=== PATIENT | male | born 1965 | race Caucasian/White ===

== ENCOUNTER 2019-10-22 07:14 | Emergency (ER) | payer MEDICAID, SELFPAY ==
[2019-10-22 07:16] VITALS: BP 147/86; PULSE 91; RESP 17; TEMP 36.9; O2SAT 97; BMI 28.1
--- NOTE | 2019-10-22 07:24 | ED.VIS.GEN ---
History of Present Illness Chief Complaint: Eye Problem Detail of Chief Complaint: Possible flash burn Informant: Patient Onset: Today Current Severity: Mild Maximum Severity: Moderate Narrative: Patient presents with concerns for flash burn to both eyes. He states he found an old lamp that he was looking at yesterday. There was warning on the lamp about radiation admission and not to look at the bulb. He was looking at the bulb and then around 130 this morning woke up with sand sensation in each eye consistent with prior flash burn. He does not wear glasses or contacts. Past Medical History - Allergies and Home Meds Allergies/Adverse Reactions: Allergies No Known Allergies Allergy (Verified 10/22/19 07:15) Primary Care Physician: Care Physician,No Primary [Primary Care Provider] - Past Medical History: None Lives: Spouse/ Significant Other Review of Systems General: Denies: Chills, Fever Eyes: Reports: - - Watering, pain bilateral eyes ENT: Denies: Sore throat Cardiovascular: Denies: Chest pain Respiratory: Denies: Dyspnea, Cough Gastrointestinal: Denies: Abdominal pain, Nausea, Vomiting, Diarrhea Musculoskeletal: Denies: Neck pain, Back pain Skin: Denies: Rash Neurological: Denies: Headache Allergy: Denies: Uticaria Physical Exam Vital Signs/Narrative: Vital Signs Temp Pulse Resp BP Pulse Ox 10/22/19 07:16 98.5 F 91 17 147/86 H 97 Inital Vital Signs reviewed: Yes General: Well nourished, Well developed Head: Normocephalic Eyes: Perrl, EOMI, - - Minimal injection ENT: Moist mucous membranes Neck: Supple Cardiovascular: Regular rate, Regular rhythm Respiratory: No distress, CTA bilaterally Abdomen: Soft, Nontender, Normal bowel sounds Skin: Normal color Neurological: Alert, Oriented x3 Psychological: Normal affect Diagnostic/Tx/Re-eval - Medical Decision Making Tetracaine drops were applied to each eye with improvement in his symptoms. Fluorescein dye is applied. He has slight uptake in each eye, left greater than right. No focal ulcerations noted. Patient be treated with gentamicin ophthalmic drops and referred to Dr. Goetz for follow-up if not improving. ED Disposition - Plan for ED Patient: Disposition: Home or Assisted Living Diagnosis: UV keratitis Instructions: FLASH BURN, Eye Referrals: Diego Goetz MD [STAFF PHYSICIAN] - 3-5 Days if not improving Additional Instructions: Gentamicin eye drops - 1 drop to each eye every 6 hours until symptoms resolved for 24 hours
[2019-10-22] MEDS: Fluorescein 1 MG STRIP 1 STRIP EACH EYE (07:47)
[2019-10-22] MEDS: Tetracaine 0.5% Ophthalmic Bottle 1 DRP EACH EYE (07:48)
[2019-10-22] MEDS: Gentamicin Sulfate 1 OPTH.BTL 1 DRP EACH EYE (07:48)
== END 2019-10-22 07:54 | disposition home or self-care (01) ==
LOC: ED 07:45
PROVIDERS: Emergency Provider Emergency Medicine
DX: H16.8 Other keratitis (principal)
CPT/HCPCS: 99282

== ENCOUNTER → 2019-11-30 12:38 | Outpatient (CLI) | payer MEDICAID, SELFPAY ==
--- NOTE | 2019-11-30 09:55 | TISS_PTH ---
PATIENT: ARMEN CHIN LOC: [facility] U#:[id number] AGE/SX: 60/M ROOM: RE11/30/[address]: Dr. Raúl aMsterson MD : 1965 BED: DIS: SPEC #: [id number] RECD: 11/30/19 12:40 STATUS: CONCETTA NEMESIO #: [id number] JOSE ARMANDO: 11/30/19 09:[address]: Raúl Masterson DEPT: SURGICAL PATHOLOGY RECD BY: Jimmy Ovalles ENTERED: 11/30/19 12:45 SP TYPE: Tissue Bx OT DR: [facility] Tissues: Palate, NOS Procedures: Surgery Specimen Level IV HEADER OPERATION: Biopsy PRE-OP DIAGNOSIS: Papilloma soft palate TISSUE SUBMITTED: Right palate MICROSCOPIC DIAGNOSIS Right soft palate, biopsy: Squamous papilloma. AM:gladis 12/01/19 MICROSCOPIC DESCRIPTION Slides are reviewed. GROSS DESCRIPTION Received in fixative is one container labeled with the patient's name and designated papilloma right palate. The specimen consists of a piece of saba-white soft tissue measuring 0.5 x 0.5 x 0.3 cm and 0.2 x 0.2 x 0.1 cm. The entire specimen is submitted in one cassette. / SJ:rg 11/30/19 TC:1 CPT: 98957
== END ==
PROVIDERS: Referring Provider Otolaryngology; Visit Provider Otolaryngology
DX: D10.39 Benign neoplasm of other parts of mouth (principal)
CPT/HCPCS: 88305

== ENCOUNTER → 2020-01-10 07:07 | Outpatient (CLI) | payer MEDICAID, SELFPAY ==
--- NOTE | 2020-01-10 09:06 | NEURO ---
NCS and/or EMG Patient Report Ordering Doctor: Maria L Briones DATE OF SERVICE: 01/10/20 Jermaine Baker is a 54-year-old male presents for electrodiagnostic testing of the upper limbs. He reports numbness and tingling in the hands, worse on the right side. Electrodiagnostic findings: Right median motor nerve demonstrates prolonged distal latency with normal amplitude and conduction velocity. The left median motor nerve demonstrates prolonged distal latency with normal amplitude and reduced conduction velocity. The right ulnar motor latency and amplitude are within normal limits. There is decrease in ulnar motor conduction across the right elbow. Left ulnar motor responses within normal limits. Sensory responses are prolonged in both the right and left median nerve at the wrist. On needle EMG, all muscles tested in the upper limb showed no evidence of denervation with normal motor unit action potentials. Electrodiagnostic impression: This is an abnormal study in the upper limbs 1. Electrodiagnostic findings demonstrate bilateral median mononeuropathy. This is consistent with a mild left carpal tunnel syndrome and a moderate right carpal tunnel syndrome. 2. Electrodiagnostic findings consistent with right-sided cubital tunnel syndrome, mild to moderate in nature. 3. No electrodiagnostic evidence is noted for cervical radiculopathy. If there are any further questions, please do not hesitate to contact me.
== END ==
DX: G56.03 Carpal tunnel syndrome, bilateral upper limbs (principal)
CPT/HCPCS: 95886; 95912

== ENCOUNTER 2020-03-22 11:31 | Emergency (ER) | payer MEDICAID, SELFPAY ==
[2020-03-22 11:32] VITALS: BP 134/76; PULSE 77; RESP 17; TEMP 36.8; O2SAT 98; BMI 28.0
--- NOTE | 2020-03-22 11:44 | CT_ITS ---
STUDY: CTA HEAD AND NECK WITH CONTRAST REASON FOR EXAM: Male, 54 years old. ROSE X 10 DAYS RT SIDE OF HEAD. NKI RADIATION DOSAGE (If Supplied By Facility): CTDIvol = ( 29.63 ) mGy, DLP = ( 1520.67 ) mGycm TECHNIQUE: CT angiography was performed with a multi-detector CT scanner. Data acquisition was obtained from the skull base through the vertex following intravenous administration of Isovue 370 100ml. MIP images were reconstructed from the axial data set. Post-processing of the angiographic images was performed, with multiplanar reformation and 3D reconstruction. Individualized dose optimization techniques were used for this CT. COMPARISON: No relevant priors. FINDINGS: Normal bilateral petrous carotid arteries. Normal right cavernous carotid artery with a normal supraclinoid bifurcation. Normal left cavernous carotid artery with a normal supraclinoid bifurcation. Normal right A1 segments of the anterior cerebral artery. Normal left A1 segments of the anterior cerebral artery. Normal intact anterior communicating artery (ACOM). Normal bilateral A2 segments of the anterior cerebral arteries. Normal right M1 and M2 segments of the middle cerebral arteries, with a normal M1 bifurcation. Normal left M1 and M2 segments of the middle cerebral arteries, with a normal M1 bifurcation. Normal right posterior communicating artery (PCOM). Normal left posterior communicating artery (PCOM). Normal bilateral vertebral arteries. Normal basilar artery with a normal basilar bifurcation. The visualized bilateral superior cerebellar (SCA) arteries are normal. Normal bilateral P1, P2 and visualized P3 segments of the posterior cerebral arteries. There is no demonstrated aneurysm of the [place]. There is no demonstrated abnormality of the visualized brain. AORTIC ARCH: Normal visualized aortic arch. Normal origins of the brachiocephalic, left common carotid, and left subclavian arteries. RIGHT CAROTID ARTERIES: Normal right common carotid artery (CCA). Minimal calcifications at the right common carotid bulb. Normal origin of the right internal carotid (ICA) artery without a hemodynamically significant stenosis. Normal visualized cervical portion of the right internal carotid artery. Normal origin of the right external carotid artery (ECA). LEFT CAROTID ARTERIES: Normal left common carotid artery (CCA). Normal left common carotid bulb. Normal origin of the left internal carotid (ICA) artery without a hemodynamically significant stenosis. Normal visualized cervical portion of the left internal carotid artery. Normal origin of the left external carotid artery (ECA). VERTEBRAL ARTERIES: Normal bilateral vertebral arteries. Left paranasal sinus mucosal thickening. There is a prominent right frontal extra-axial drain in the vein noted likely a normal variant. CT/CTA Head AND Neck W/ Contrast IMPRESSION: Normal CTA Head and neck with contrast. There is a prominent right frontal extra-axial drain in the vein noted likely a normal variant. Paranasal sinuse mucosal thickening. Electronically Signed: Wally Cuevas DO at 13:13 EDT Tel [phone], Service support ,
--- NOTE | 2020-03-22 11:45 | ED.DCSUM_ITS ---
History of Present Illness Chief Complaint: Headache Informant: Patient Onset: Days - 10 days Context: Gradual Onset Timing: Waxes and wanes Current Severity: Mild Maximum Severity: Moderate Narrative: Patient presents with 10-day history of right-sided headache. He does point to the occiput area states it seems to radiate up across his scalp. He denies light sensitivity, nausea, or vomiting. Has been taking ibuprofen for pain and in fact states he took 1600 mg this morning before coming in. He denies recent head injury but does have history of prior head injuries. He is not a person who typically gets headaches. He is concerned for tumor or blood clots causing his symptoms. Past Medical History - Allergies and Home Meds Allergies/Adverse Reactions: Allergies No Known Allergies Allergy (Verified 03/22/20 11:32) Primary Care Physician: Gertrudis Morales [Primary Care Provider] - Past Medical History: None Lives: Spouse/ Significant Other Smoking Status: Current every day smoker Review of Systems General: Denies: Chills, Fever Eyes: Denies: Visual changes - bilaterally ENT: Denies: Bilateral ear pain Cardiovascular: Denies: Chest pain Respiratory: Denies: Dyspnea, Cough Gastrointestinal: Denies: Abdominal pain, Nausea, Vomiting Musculoskeletal: Denies: Extremity Pain Neurological: Reports: Headache. Denies: Weakness, Parasthesia Hematologic: Denies: Easy bruising, Easy bleeding Allergy: Denies: Uticaria Physical Exam Vital Signs/Narrative: Vital Signs Temp Pulse Resp BP Pulse Ox 03/22/20 11:32 98.2 F 77 17 134/76 H 98 Inital Vital Signs reviewed: Yes General: Well nourished, Well developed Head: Normocephalic Eyes: Perrl, EOMI ENT: Moist mucous membranes, - - No C-spine tenderness. Neck: Supple Cardiovascular: Regular rate, Regular rhythm Respiratory: No distress, CTA bilaterally Abdomen: Soft, Nontender Back: Nontender Extremities: Nontender Skin: Normal color, No rash Neurological: Alert, Oriented x3, Normal Strength, Normal Sensation Psychological: Normal affect Diagnostic/Tx/Re-eval Impressions Head/Neck CTA 03/22/20 11:44 IMPRESSION: Normal CTA Head and neck with contrast. There is a prominent right frontal extra-axial drain in the vein noted likely a normal variant. Paranasal sinuse mucosal thickening. Electronically Signed: Wally Cuevas DO at 13:13 EDT Tel [phone], Service support , 03/22/20 11:44 CTA Head AND Neck W/ Contrast [CT] Stat Laboratory Results 03/22/20 03/22/20 11:50 11:50 WBC 10.1 RBC 4.64 Hgb 14.7 Hct 42.2 MCV 90.9 MCH 31.7 MCHC 34.8 RDW Std Deviation 40.7 RDW Coeff of Vicky 12.3 Plt Count 279 MPV 8.9 Immature Gran % (Auto) 0.700 Neut % (Auto) 62.8 Lymph % (Auto) 23.4 [place] % (Auto) 7.2 Eos % (Auto) 5.4 H Baso % (Auto) 0.5 Absolute Neuts (auto) 6.3 Absolute Lymphs (auto) 2.36 Nucleated RBC % 0 Sodium 139 Potassium 3.9 Chloride 109 H Carbon Dioxide 26.0 Anion Gap 4 L BUN 23 H Creatinine 0.71 Estim Creat Clear Calc 107.33 Est GFR (MDRD) Af Amer 149 Est GFR (MDRD) Non-Af 123 BUN/Creatinine Ratio 32.5 H Glucose 118 H Calcium 8.3 L - Medical Decision Making Patient did not want anything for headache here. He is reassured with our CT findings. As previously stated he does point to the base of the occiput describing source of pain and it seems to be worse with turning his head. My suspicion is he may have nerve irritation there. He will be given a short course of steroids to help with nerve irritation. ED Disposition - Plan for ED Patient: Disposition: Home or Assisted Living Diagnosis: Cephalgia Instructions: ED Headache Unspecified Prescriptions: Prednisone [Deltasone] 40 mg PO DAILY #10 tab Transmission Status: Pending to [facility] Referrals: Андрей Dunham,Gertrudis Mitchell [Primary Care Provider] - 1 Week
[2020-03-22 12:01] LABS: Absolute Lymphocyte Count 2.36 X10^3/uL (0.83-4.51); Absolute Neutrophil Count 6.3 X10^3/uL (2.0-7.7); Basophil# 0.05 X10^3/uL; Basophil% 0.5 % (0-1); Eosinophil# 0.54 X10^3/uL; Eosinophils% 5.4 % (0-5); Hematocrit 42.2 % (40-54); Hemoglobin 14.7 g/dL (13.0-16.5); Lymphocyte # 2.36 X10^3/ul (4.0); Lymphocyte % 23.4 % (19-41); Mean Corp Hgb Conc 34.8 g/dL (32-36); Mean Corpuscular Hgb 31.7 pg (27.0-32.0); Mean Corpuscular Volume 90.9 fL (80-94); Mean Platelet Vol. 8.9 fl (6.2-12.0); Monocyte# 0.73 X10^3/uL; Monocyte% 7.2 % (0-10); NRBC Flagged by Analyzer 0 % (0-5); Neutrophil # 6.32 X10^3/uL (2.7-7.7); Neutrophil % 62.8 % (47-70); Platelet Count 279 K/mm3 (150-450); RBC Distribution Width CV 12.3 % (11.6-14.6); RBC Distribution Width SD 40.7 fl (35.1-43.9); Red Blood Count 4.64 M/mm3 (4.6-6.2); White Blood Count 10.1 K/mm3 (4.4-11.0)
[2020-03-22 12:10] LABS: Anion Gap 4 (5-15); BUN 23 mg/dL (7-18); BUN/Creat Ratio 32.5 RATIO (10-20); Calcium,Total 8.3 mg/dL (8.5-10.1); Chloride 109 mmol/L (98-107); Creatinine, Serum 0.71 mg/dL (0.70-1.30); EST Glomerular Filtration Rate 123 mL/min (>60); Est Glom Filt Rate - Afr Amer 149 mL/min (>60); Estimated Creatinine Clearance 107.33 ml/min; Glucose 118 mg/dL (74-106); Potassium 3.9 mmol/L (3.5-5.1); Sodium Level 139 mmol/L (136-145)
[2020-03-22] MEDS: predniSONE 20 MG Tablet 60 MG PO (13:53)
[2020-03-22] MEDS: Contrast Allergy Safety Check IV (13:54)
[2020-03-22 13:55] VITALS: RESP 18
== END 2020-03-22 13:56 | disposition home or self-care (01) ==
PROVIDERS: Emergency Provider Emergency Medicine
DX: R51 Headache (principal); F17.200 Nicotine dependence, unspecified, uncomplicated
CPT/HCPCS: 70496; 70498; 80048; 85025; 99284; Q9967; A4216

== ENCOUNTER 2020-05-21 11:06 | Emergency (ER) | payer MEDICAID, SELFPAY ==
[2020-05-21 11:07] VITALS: BP 144/89; PULSE 86; RESP 18; TEMP 36.9; O2SAT 99; BMI 29.5
--- NOTE | 2020-05-21 11:31 | VDLE_ITS ---
Reason For Study: Swelling Procedure LEFT Exam performed portable in ED. GSV is normal. A preliminary report was called and/or faxed CFV is compressible, spontaneous, phasic, to Suzy. competent, and demonstrates normal augmentation. FV is compressible, spontaneous, phasic, competent and demonstrates normal augmentation. POP V is compressible, spontaneous, phasic, competent and demonstrates normal augmentation. T/P Trunk is compressible. PTV is compressible. LT PerV is compressible. Interpretation Summary There is no evidence of left lower extremity deep vein thrombosis. Left great saphenous vein appears patent and compressible segmentally. Ordering Physician: Shailesh Almonte Performed By: Keke Brar RVT
--- NOTE | 2020-05-21 11:51 | ED.DCSUM_ITS ---
History of Present Illness Chief Complaint: Edema Informant: Patient Narrative: Patient is a 54-year-old male who presents to the ED for left leg pain, swelling erythema. This started approximately 4 days ago. 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 Since that has been having swelling around the knee. This has progressed down the leg. He has been able to ambulate without difficulty. His knee feels stiff to him but no pain when moving his knee. He has never had this swelling before in the past. No history of DVT/PE. Denies any chest pain or shortness of breath. No family history of VTE. He denies any systemic symptoms including any fever/chills or nausea/vomiting. No abdominal pain. Past Medical History - Allergies and Home Meds Allergies/Adverse Reactions: Allergies No Known Allergies Allergy (Verified 03/22/20 11:32) Primary Care Physician: Marcel Gerber MD [STAFF PHYSICIAN] - [facility],Gertrudis Mitchell [Primary Care Provider] - Smoking Status: Current every day smoker Review of Systems General: Denies: Chills, Fever, Sweats Eyes: Denies: Visual changes - bilaterally, Diplopia ENT: Denies: Rhinorrhea, Sore throat Cardiovascular: Denies: Chest pain, Palpitations Respiratory: Denies: Dyspnea, Cough, Dyspnea on exertion Gastrointestinal: Denies: Abdominal pain, Nausea, Vomiting, Diarrhea Musculoskeletal: Reports: Swelling, Extremity Pain. Denies: Back pain Skin: Reports: Rash. Denies: Wounds Neurological: Denies: Headache, Weakness, Numbness Physical Exam Vital Signs/Narrative: Vital Signs Temp Pulse Resp BP Pulse Ox 05/21/20 11:07 98.5 F 86 18 144/89 H 99 Inital Vital Signs reviewed: Yes General: Well nourished, Well developed, No Acute Distress Head: Normocephalic, Atraumatic Eyes: Perrl, EOMI ENT: Moist mucous membranes, No rhinorrhea Neck: Supple, Nontender Cardiovascular: Regular rate, Regular rhythm, No murmurs Respiratory: No distress, CTA bilaterally, Chest nontender Abdomen: Soft, Nontender, Nondistended, Normal bowel sounds Back: Nontender, Normal Inspection Extremities: - - Patient has swelling over the patella. He has full range of motion without significant pain. There is erythema surrounding the knee. The prepatellar area is tender to palpation. There is peripheral edema going down with 1+ pitting edema. Otherwise neurovascularly intact. Skin: Normal color, No rash Neurological: Alert, Oriented x3, Cranial nerves II-XII grossly intact, Normal Strength, Normal Sensation Psychological: Normal affect, Normal Mood Diagnostic/Tx/Re-eval - Medical Decision Making Patient presents to the ED for leg pain as well as swelling, warmth. I do have concern for septic bursitis. Joint is not affected at this time as he is free range of motion without any pain. Ultrasound not show any evidence of DVT. X- ray not show any evidence of foreign body. Will treat with antibiotics. Given first dose of antibiotics here in the emergency department. I did make a referral for orthopedic surgery for potential drainage. Warning signs and sympt oms for which to return to the ED are reviewed with him including developing systemic symptoms, painful joint movements are reviewed. He understands and is agreeable this plan. Patient discharged home in stable condition. ED Disposition - Plan for ED Patient: Disposition: Home or Assisted Living Diagnosis: Lower extremity cellulitis Instructions: ED Bursitis, ED Cellulitis Prescriptions: Smz/Tmp Ds [Bactrim Ds] 2 tab PO BID 7 Days #28 tab Transmission Status: Received by [id number] Cephalexin [Keflex] 500 mg PO 4X/DAY 7 Days #28 cap Transmission Status: Received by [id number] Referrals: [facility] Gertrudis Dunham [Primary Care Provider] - Marcel Gerber MD [STAFF PHYSICIAN] - 2 Days
[2020-05-21 13:11] VITALS: RESP 18
--- NOTE | 2020-05-21 13:50 | RAD_ITS ---
STUDY: X-RAY - LEFT KNEE REASON FOR EXAM: Male, 54 years old. LEFT LOWER LEG SWELLING AND REDNESS. UNKNOWN INJURY TECHNIQUE: 3 view(s) of the knee. COMPARISON: None. FINDINGS: Normal visualized distal femur. Healed fracture of the proximal fibular shaft. Prior ORIF of the mid tibial shaft. Normal proximal tibiofibular articulation. Normal medial femorotibial compartment. Normal lateral femorotibial compartment. Normal patellofemoral articulation. Pretibial soft tissue swelling. RAD/Knee 3 Views IMPRESSION: Pretibial soft tissue swelling. Electronically Signed: Biju Castorena, at 14:20 EDT , Service support ,
[2020-05-21] MEDS: Smz/Tmp Ds Tablet 2 TABLET PO (14:40)
[2020-05-21] MEDS: Cephalexin 250 MG Capsule 500 MG PO (14:40)
== END 2020-05-21 14:46 | disposition home or self-care (01) ==
PROVIDERS: Emergency Provider Emergency Medicine
DX: L03.116 Cellulitis of left lower limb (principal); F17.200 Nicotine dependence, unspecified, uncomplicated
CPT/HCPCS: 73562; 93971; 99283; A4216

== ENCOUNTER → 2020-07-12 07:26 | Outpatient (CLI) | payer MEDICAID, SELFPAY ==
[2020-07-12 08:47] LABS: Cholesterol 195 mg/dL (200); High Density Lipoprotein 55 mg/dL; Triglycerides 92 mg/dL; Very Low Density Lipoprotein 18 mg/dL (5-40)
== END ==
PROVIDERS: Nurse Practitioner Family
DX: E78.5 Hyperlipidemia, unspecified (principal)
CPT/HCPCS: 36415; 80061

== ENCOUNTER → 2020-12-31 14:12 | Outpatient (CLI) | payer MEDICAID, SELFPAY ==
[2020-12-31 14:45] LABS: Hematocrit 42.6 % (40-54); Hemoglobin 14.8 g/dL (13.0-16.5); Mean Corp Hgb Conc 34.7 g/dL (32-36); Mean Corpuscular Hgb 31.4 pg (27.0-32.0); Mean Corpuscular Volume 90.3 fL (80-94); Mean Platelet Vol. 9.2 fl (6.2-12.0); Platelet Count 249 K/mm3 (150-450); RBC Distribution Width CV 12.5 % (11.6-14.6); RBC Distribution Width SD 41.1 fl (35.1-43.9); Red Blood Count 4.72 M/mm3 (4.6-6.2); White Blood Count 11.6 K/mm3 (4.4-11.0)
[2020-12-31 15:21] LABS: ALB/GLOB Ratio 1.3 RATIO (0.9-2.4); AST(SGOT) 37 U/L (15-37); Alanine Aminotransfer ALT/SGPT 29 U/L (16-61); Albumin, Serum 3.9 g/dL (3.2-5.0); Alkaline Phosphatase 80 U/L (45-117); Anion Gap 7 (5-15); BUN 19 mg/dL (7-18); BUN/Creat Ratio 20.3 RATIO (10-20); Calcium,Total 8.4 mg/dL (8.5-10.1); Chloride 102 mmol/L (98-107); Creatinine, Serum 0.94 mg/dL (0.70-1.30); EST Glomerular Filtration Rate 89 mL/min (>60); Est Glom Filt Rate - Afr Amer 107 mL/min (>60); Glucose 119 mg/dL (74-106); PSA,Total - Annual Screen 0.39 ng/mL (0.00-4.00); Potassium 3.5 mmol/L (3.5-5.1); Protein, Total 6.9 g/dL (6.4-8.2); Sodium Level 135 mmol/L (136-145)
[2021-01-05 20:07] LABS: Testosterone, Free 6.59 ng/dL (5.00-21.00)
[2021-01-05 20:18] LABS: Testosterone, % Free 1.28 % (1.50-4.20); Testosterone, Total 515 ng/dL (264-916)
== END ==
DX: G89.4 Chronic pain syndrome (principal); Z12.5 Encounter for screening for malignant neoplasm of prostate
CPT/HCPCS: 36415; 80053; 82652; 84153; 84402; 84403; 85027; G0103

== ENCOUNTER → 2021-03-14 11:07 | Outpatient (CLI) | payer MEDICAID, SELFPAY ==
--- NOTE | 2021-03-14 11:39 | RAD_ITS ---
STUDY: X-RAY - LUMBAR SPINE REASON FOR EXAM: Male, 55 years old. LOW BACK PAIN TECHNIQUE: view(s) of the lumbar spine were obtained. COMPARISON: None FINDINGS: There is slight loss of volume of the body of T12 with some anterior osteophyte formation noted. Minimal narrowing cough T12-L1 seen. There rest of the intervertebral disks between L1-2 ,L2-3 and L3-4 are maintained. There is minimal narrowing at the level of L4-5. There is marked narrowing of L5-S1 level with vacuum phenomenon. No evidence of spondylolysis or spondylolisthesis. The spinous and transverse processes as well as the pedicles are intact. The soft tissue structures are unremarkable. RAD/Lumbar Spine 2 or 3 Views IMPRESSION: Degenerative disc disease particularly at L5-S1 with vacuum phenomenon. Moderate hypertrophic osteophyte formation particularly seen at the level of T12 and L5-S1 Electronically Signed: Waldemar Garner, at 12:03 EDT Tel , Service support ,
[2021-03-14 13:49] LABS: Vitamin B12 438 pg/mL (211-911)
[2021-03-14 13:54] LABS: Iron 204 ug/dL (65-175); Iron Binding Capacity,Total 257 ug/dL (250-450); PERCENT IRON SATURATION 79.4 % (15.0-55.0); T4 Free Direct 0.78 ng/dL (0.76-1.46)
== END ==
PROVIDERS: Referring Provider Nurse Practitioner Adult Health; Visit Provider Nurse Practitioner Adult Health
DX: R53.83 Other fatigue (principal); M54.5 Low back pain
CPT/HCPCS: 36415; 72100; 82607; 83540; 83550; 84439

== ENCOUNTER 2021-03-22 10:38 | Emergency (ER) | payer MEDICAID, SELFPAY ==
[2021-03-22 10:39] VITALS: BP 149/95; PULSE 80; RESP 16; TEMP 36.2; O2SAT 99; BMI 29.5
--- NOTE | 2021-03-22 10:51 | EX.ED.VIS.EY ---
HPI History of Present Illness Chief Complaint: Eye Problem Informant: patient Onset/Context/Timing Location: Right Eye Onset: Yesterday Current Severity: Mild Maximum Severity: Mild Associated Symptoms Associated Symptoms - Eyes: Foreign body sensation History of injury: Uncertain Visual correction: None Narrative Narrative: 55-year-old male was working on a car at his home and stated he had safety glasses on but thinks he might of got a piece of rust or metal in his right eye. His father since yesterday. He does not wear glasses or contacts. He has never had eye surgery. He denies any significant visual change. There is been no discharge. No trauma otherwise. Prior similar symptoms: Yes Recent Illness/Hospitalization: No PFSH PFSH Medical History Smoker Home Medications cholecalciferol (vitamin D3) 1,000 unit PO DAILY 03/22/20 [History Last Taken Unknown] gabapentin 300 mg PO TIDCM 03/22/20 [History Last Taken Unknown] prednisone 40 mg PO DAILY #10 tab 03/22/20 [Rx Last Taken Unknown] Allergy/AdvReac Type Severity Reaction Status Date / Time No Known Allergies Allergy Verified 03/22/21 10:40 Social History Smoking Status: Current every day smoker tobacco type: cigarettes ROS ROS ED ROS Narrative Denies any recent illness. Review of Systems ROS Unobtainable: Denies due to encephalopathy Constitutional Constitutional ED: Denies fever(s) Eyes Eyes: Denies change in vision ENT ENT ED: Denies ear pain or sore throat Cardiovascular Cardiovascular: Denies chest pain Respiratory/Chest Respiratory/Chest: Denies dyspnea Gastrointestinal Gastrointestinal: Denies abdominal pain, diarrhea, nausea or vomiting Genitourinary Genitourinary ED: Denies dysuria Musculoskeletal Musculoskeletal: Denies myalgias Integumentary Denies rash Neurologic Neurologic: Denies headache(s) Psychiatric Psychiatric: Denies depression Endocrine Endocrinology: Denies polyuria Hematologic/Lymphatic Hematologic/Lymphatic: Denies easy bruising Allergic/Immunologic Allergic/Immunologic ED: Denies urticaria EXAM Physical Exam Narrative Exam Narrative: Middle-age male no acute distress vital signs stable afebrile. H EENT exam unremarkable except possible foreign body right eye will need further evaluation with slit lamp and fluorescein. Pupils round reactive light motions are intact. No signs of infection or trauma. Lungs are clear. Heart regular rate and rhythm abdomen soft. Moving all 4 extremities. Neurologic exam unremarkable. Const Vital Signs: 03/22/21 10:39 Temperature 97.1 F L Temperature Source Temporal Pulse Rate 80 Respiratory Rate 16 Blood Pressure 149/95 H Blood Pressure Mean 113 Pulse Ox 99 Oxygen Delivery Method Room Air Positive well nourished and well developed General Appearance ED: well developed HEENT atraumatic; Negative for trauma or tenderness Eyes General Eye ED: Yes normal appearance of both eyes and normal light reflex Neck no lymphadenopathy, supple and no JVD Resp normal respiratory effort, no retractions, no use of accessory muscles and clear to auscultation bilaterally Cardio regular rate and no murmurs GI non-tender and non-distended Auscultation: normoactive bowel sounds Palpation: soft Extremity normal to inspection General Extremety ED: Negative for edema General Extremity: Negative for edema Neuro oriented x3, CN's II-XII intact bilaterally and moves all extremities Sensorium / Orientation: alert, oriented to person, oriented to place and oriented to time Psych Psych Narrative: Normal. Skin Lesions: no lesions Rashes: no rashes MDM MDM MDM Narrative Medical decision making narrative: Patient concern with either right eye foreign body or corneal abrasion. Tetracaine will be applied to the eye and fluorescein and slit-lamp exam will be performed. Along with visual acuity. Tetracaine was right eye improve the discomfort greatly. Fluorescein stain. There did appear to be some type of foreign body in the right in the middle of his pupil. I used a Q-tip and removed some of it there appears to be some remnant of the foreign body. I discussed that with the patient he will follow-up with [facility] on Wednesday for further evaluation and possible burring if at some foreign body. Discharge Plan Triage Chief Complaint: Eye Problem ED Provider: Piyush Mclean Dx/Rx/DC Orders Clinical Impression: Acute foreign body of right eye, Abrasion, corneal Instructions: ED Corneal Abrasion, ED Corneal Foreign Body, Removed Prescriptions: No Action gabapentin 300 MG capsule 300 mg PO TIDCM RF: 0 cholecalciferol (vitamin D3) 1,000 UNIT tablet 1,000 unit PO DAILY RF: 0 prednisone 20 MG tablet 40 mg PO DAILY Qty: 10 RF: 0 Primary Care Provider: [facility] Gertrudis Carrera Referrals: Mario Jaime MD [STAFF PHYSICIAN[facility] - Activity Restrictions/Additional Instructions: May use tetracaine for the next 2 days to help with any pain in the right eye. Stop using it after Wednesday evening. Long-term returns healing. Based duration eye ointment 2-3 times a day in the right eye till gone. Call and follow-up with [facility] on Wednesday need to be seen had them reevaluate to see if there is any remnant of the foreign body right in your eye and if so they need to bur drill it out. Tylenol and Motrin for pain. Disposition Disposition: Home, Self Care
[2021-03-22] MEDS: Tetracaine 0.5% Ophthalmic Bottle 1 DRP RIGHT EYE (10:54)
[2021-03-22] MEDS: Fluorescein 1 MG STRIP 1 STRIP RIGHT EYE (10:55)
== END 2021-03-22 12:18 | disposition home or self-care (01) ==
LOC: ED 11:26
PROVIDERS: Emergency Provider Emergency Medicine
DX: T15.01XA Foreign body in cornea, right eye, initial encounter (principal); F17.210 Nicotine dependence, cigarettes, uncomplicated; Z79.52 Long term (current) use of systemic steroids; W45.8XXA Other foreign body or object entering through skin, initial encounter
CPT/HCPCS: 99283

== ENCOUNTER 2021-05-29 08:05 | Emergency (ER) | payer MEDICAID, SELFPAY ==
[2021-05-29 08:06] VITALS: BP 176/86; PULSE 79; RESP 18; TEMP 36.4; O2SAT 100; BMI 28.2
--- NOTE | 2021-05-29 09:11 | EX.ED.DYSGE1 ---
HPI History of Present Illness Chief Complaint: Edema Narrative Narrative: Patient states he was at home this morning eating his breakfast when all of a sudden he felt a pop and then noticed some swelling to the right side of his face. He denies any recent trauma any trouble breathing or swallowing any fevers or chills. He states that since the initial swelling symptoms are spontaneously improving but have not resolved and therefore he presents for evaluation [facility] Medical History Smoker Home Medications cholecalciferol (vitamin D3) 1,000 unit PO DAILY 03/22/20 [History Last Taken Unknown] gabapentin 300 mg PO TIDCM 03/22/20 [History Last Taken Unknown] prednisone 40 mg PO DAILY #10 tab 03/22/20 [Rx Last Taken Unknown] amoxicillin-pot clavulanate [Augmentin] 1 tab PO BID #20 tab 05/29/21 [Rx Last Taken Unknown] prednisone 40 mg PO DAILY 7 Days #14 tab 05/29/21 [Rx Last Taken Unknown] Allergy/AdvReac Type Severity Reaction Status Date / Time No Known Allergies Allergy Verified 05/29/21 08:07 Social History Smoking Status: Current every day smoker tobacco type: cigarettes ROS ROS ED Constitutional Constitutional ED: Denies chills or fever(s) ENT ENT ED: Denies sore throat Cardiovascular Cardiovascular: Denies chest pain Respiratory/Chest Respiratory/Chest: Denies cough or dyspnea Gastrointestinal Gastrointestinal: Denies abdominal pain, diarrhea, nausea or vomiting Genitourinary Genitourinary ED: Denies dysuria Musculoskeletal Musculoskeletal: Denies myalgias Integumentary Denies rash Neurologic Neurologic: Denies headache(s) Hematologic/Lymphatic Hematologic/Lymphatic: Denies easy bleeding or easy bruising EXAM Physical Exam Const Vital Signs: 05/29/21 08:06 Temperature 97.6 F L Temperature Source Temporal Pulse Rate 79 Respiratory Rate 18 Blood Pressure 176/86 H Blood Pressure Mean 116 Pulse Ox 100 Oxygen Delivery Method Room Air Positive well nourished and well developed General Appearance ED: well developed HEENT Reports moist mucous membranes HEENT Narrative: There is soft tissue swelling along the right parotid gland region without overlying erythema warmth or tenderness to palpation. There is no obvious stone palpated within Stensen's duct. No tongue or lip swelling no oral lesions no airway edema or compromise. Eyes PERRL and EOMs intact bilaterally Neck supple Resp normal respiratory effort and clear to auscultation bilaterally Cardio regular rate and regular rhythm GI non-tender and non-distended Auscultation: normoactive bowel sounds Palpation: soft Extremity normal to inspection Neuro oriented x3 and CN's II-XII intact bilaterally Sensorium / Orientation: alert Psych mental status grossly normal Skin no rashes or lesions noted MDM MDM MDM Narrative Medical decision making narrative: Patient presented to the ER with stable vitals and in no acute distress. His exam is most consistent with inflammation or stone in the parotid gland/duct. He does not have trouble breathing or swallowing and therefore do not feel there is need for laboratory or imaging studies at this time. Patient will be given Augmentin and prednisone but told to hold off on filling these as the symptoms are spontaneously improving and therefore may have already passed the stone causing his symptoms Discharge Plan Triage Chief Complaint: Edema ED Provider: Shane Montano Dx/Rx/DC Orders Clinical Impression: Acute parotitis Instructions: ED Salivary Gland Stones Prescriptions: New amoxicillin-pot clavulanate [Augmentin] 875-125 mg tablet 1 tab PO BID Qty: 20 RF: 0 prednisone 20 mg tablet 40 mg PO DAILY 7 Days Qty: 14 RF: 0 No Action gabapentin 300 MG capsule 300 mg PO TIDCM RF: 0 cholecalciferol (vitamin D3) 1,000 UNIT tablet 1,000 unit PO DAILY RF: 0 prednisone 20 MG tablet 40 mg PO DAILY Qty: 10 RF: 0 Primary Care Provider: [facility] - Disposition Disposition: Home, Self Care
== END 2021-05-29 09:44 | disposition home or self-care (01) ==
PROVIDERS: Emergency Provider Emergency Medicine
DX: K11.21 Acute sialoadenitis (principal); F17.210 Nicotine dependence, cigarettes, uncomplicated; Z79.52 Long term (current) use of systemic steroids
CPT/HCPCS: 99282

== ENCOUNTER → 2022-01-30 | Outpatient (CLI) | payer MEDICAID, SELFPAY ==
--- NOTE | 2022-01-30 15:17 | RAD_ITS ---
STUDY: X-RAY - RIGHT HAND, ATTENTION 4 FINGER REASON FOR EXAM: Male, 56 years old. PAIN R FINGER TECHNIQUE: 3 view(s) of the finger were obtained. COMPARISON: None. FINDINGS: Normal metacarpal head. Normal metacarpophalangeal joint. Normal proximal phalanx. Normal middle phalanx. Normal distal phalanx. Normal proximal interphalangeal joint. Normal distal interphalangeal joint. RAD/Finger(s) Min 2 Views IMPRESSION: Normal x-ray examination of the finger. Electronically Signed: Patel Banerjee MD at 17:10 EDT ,
--- NOTE | 2022-01-30 15:32 | RAD_ITS ---
STUDY: X-RAY - RIGHT KNEE REASON FOR EXAM: Male, 56 years old. KNEE PAIN TECHNIQUE: 3 view(s) of the knee. COMPARISON: None. FINDINGS: Normal visualized distal femur. Normal visualized proximal tibia and fibula. Normal proximal tibiofibular articulation. There is mild degenerative arthrosis of the medial femorotibial compartment. Normal lateral femorotibial compartment. There is mild degenerative arthrosis of the patellofemoral articulation. Calcified bodies in the joint. The soft tissue structures are unremarkable. RAD/Knee 3 Views IMPRESSION: Degenerative arthrosis. Electronically Signed: Patel Banerjee MD at 17:17 EDT ,
[2022-01-30 16:21] LABS: Anion Gap 6 (5-15); BUN 22 mg/dL (7-18); BUN/Creat Ratio 26.2 RATIO (10-20); CRP 3.21 mg/L (0.0-3.0); Calcium,Total 8.6 mg/dL (8.5-10.1); Chloride 107 mmol/L (98-107); Cholesterol 182 mg/dL (200); Creatinine, Serum 0.84 mg/dL (0.70-1.30); EST Glomerular Filtration Rate 100 mL/min (>60); Est Glom Filt Rate - Afr Amer 121 mL/min (>60); Glucose 81 mg/dL (74-106); High Density Lipoprotein 43 mg/dL; Potassium 3.7 mmol/L (3.5-5.1); Rheumatoid Factor < 10.0 IU/mL (<15); Sodium Level 138 mmol/L (136-145); Thyroid Stim Hormone (TSH) 1.52 uIU/mL (0.358-3.74); Triglycerides 224 mg/dL; Uric Acid 6.6 mg/dL (3.5-7.2); Very Low Density Lipoprotein 45 mg/dL (5-40)
[2022-01-30 16:50] LABS: Erythrocyte Sedimentation Rate 7 mm/hr (0-20)
[2022-01-30 16:53] LABS: Absolute Lymphocyte Count 1.96 X10^3/uL (0.83-4.51); Absolute Neutrophil Count 6.1 X10^3/uL (2.0-7.7); Basophil# 0.04 X10^3/uL; Basophil% 0.4 % (0-1); Eosinophil# 0.27 X10^3/uL; Hematocrit 43.1 % (40-54); Hemoglobin 14.9 g/dL (13.0-16.5); Lymphocyte # 1.96 X10^3/ul (0.83-4.51); Lymphocyte % 21.6 % (19-41); Mean Corp Hgb Conc 34.6 g/dL (32-36); Mean Corpuscular Hgb 31.1 pg (27.0-32.0); Mean Platelet Vol. 9.5 fl (6.2-12.0); Monocyte# 0.69 X10^3/uL; Monocyte% 7.6 % (0-10); NRBC Flagged by Analyzer 0 % (0-5); Neutrophil # 6.08 X10^3/uL (2.7-7.7); Platelet Count 313 K/mm3 (150-450); RBC Distribution Width CV 12.5 % (11.6-14.6); RBC Distribution Width SD 41.8 fl (35.1-43.9); Red Blood Count 4.79 M/mm3 (4.6-6.2); White Blood Count 9.1 K/mm3 (4.4-11.0)
== END | disposition home or self-care (01) ==
PROVIDERS: Referring Provider Nurse Practitioner Adult Health; Visit Provider Nurse Practitioner Adult Health
DX: M25.561 Pain in right knee (principal); G89.4 Chronic pain syndrome
CPT/HCPCS: 36415; 73140; 73562; 80048; 80061; 84443; 84550; 85025; 85652; 86140; 86431

== ENCOUNTER 2022-03-18 16:50 | Emergency (ER) | payer MEDICAID, SELFPAY ==
[2022-03-18 16:51] VITALS: BP 141/74; PULSE 96; RESP 15; TEMP 36.8; O2SAT 98; BMI 29.7
--- NOTE | 2022-03-18 17:06 | EDS_ITS ---
HPI History of Present Illness Chief Complaint: Laceration Informant: patient Narrative Narrative: Presents valuation laceration right distal thigh at 11 AM 6 hours ago. 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 He continues to work. Tetanus unknown. No anticoagulation medicines. Bleeding controlled. Tetanus Immunization: Unknown [facility] Medical History Smoker Home Medications cholecalciferol (vitamin D3) 25 mcg (1,000 unit) tablet 1,000 unit PO DAILY 03/22/20 [History Last Taken Unknown] gabapentin 300 mg capsule 300 mg PO TIDCM 03/22/20 [History Last Taken Unknown] prednisone 20 mg tablet 40 mg PO DAILY #10 tabs 03/22/20 [Rx Last Taken Unknown] amoxicillin 875 mg-potassium clavulanate 125 mg tablet (Augmentin) 1 tab PO BID #20 tabs 05/29/21 [Rx Last Taken Unknown] prednisone 20 mg tablet 40 mg PO DAILY 7 days #14 tabs 05/29/21 [Rx Last Taken Unknown] Allergy/AdvReac Type Severity Reaction Status Date / Time No Known Allergies Allergy Verified 03/18/22 16:51 Social History Smoking Status: Current every day smoker tobacco type: cigarettes ROS ROS ED Constitutional Constitutional ED: Denies chills, fever(s) or sweats Eyes Eyes: Denies change in vision ENT ENT ED: Denies dysphagia or sore throat Cardiovascular Cardiovascular: Denies chest pain, leg edema, palpitations or racing heartbeat Respiratory/Chest Respiratory/Chest: Denies cough, dyspnea or dyspnea on exertion Gastrointestinal Gastrointestinal: Denies abdominal pain, diarrhea, nausea or vomiting Genitourinary Genitourinary ED: Denies dysuria, hematuria or urinary frequency Musculoskeletal Musculoskeletal: Denies back pain, extremity pain or neck pain Integumentary Reports wounds and other Details: Right thigh ; Denies rash Neurologic Neurologic: Denies headache(s), paresthesias or weakness EXAM Physical Exam Const Vital Signs: 03/18/22 16:51 Temperature 98.3 F Temperature Source Temporal Pulse Rate 96 Respiratory Rate 15 Blood Pressure 141/74 H Blood Pressure Mean 96 Pulse Ox 98 Oxygen Delivery Method Room Air Positive well nourished and well developed General Appearance ED: well developed and NAD HEENT Reports moist mucous membranes normocephalic and atraumatic Eyes PERRL, EOMs intact bilaterally and conjunctivae normal General Eye ED: Yes normal appearance of both eyes Neck no lymphadenopathy and supple General: Negative for tenderness Chest Wall Chest: Negative for tenderness Resp normal respiratory effort and normal air movement Effort and Inspection: symmetric chest movement; Negative for respiratory distress Cardio regular rate, regular rhythm and no murmurs Peripheral Pulses: pulses 2+ throughout GI normal to inspection, nondistended, normoactive bowel sounds and non-tender Palpation: Negative for guarding or rebound tenderness present Back/Spine no CVA tenderness and no thoracic nor lumbar tenderness Extremity normal to inspection General Extremety ED: Negative for edema or tenderness General Extremity: Negative for edema Neuro oriented x3 and no sensory deficits noted Sensorium / Orientation: awake and alert Skin Skin Narrative: Right lower extremity: Distal anterior thigh 6 cm slanted laceration with subcu exposure. No muscle or tendon exposure. Knee extensor mechanism intact. Minimal bleeding. MDM MDM MDM Narrative Medical decision making narrative: Laceration with subcutaneous exposure there is no muscle involvement. Tetanus updated. Laceration repaired with 10 total keith. Wound care discussed. Follow-up with his PCP removal in 10 to 14 days. All questions were answered. Procedure note: Verbal consent. Normal sterile conditions. 8 cc lidocaine 1% without epinephrine was used for local analgesia. Copious flushing with normal saline, wound was cleansed. Total of 10 keith used with good approximation of the skin. Patient Toller procedure well. Discharge Plan Triage Chief Complaint: Laceration ED Provider: Ricci Altman Dx/Rx/DC Orders Clinical Impression: Laceration of right thigh, Tetanus toxoid vaccination administered at current visit Instructions: ED Laceration: All Closures Prescriptions: No Action gabapentin 300 MG capsule 300 mg PO TIDCM cholecalciferol (vitamin D3) 1,000 UNIT tablet 1,000 unit PO DAILY prednisone 20 MG tablet 40 mg PO DAILY Qty: 10 0RF Rx Instructions: With food amoxicillin-pot clavulanate [Augmentin] 875-125 mg tablet 1 tab PO BID Qty: 20 0RF prednisone 20 mg tablet 40 mg PO DAILY 7 Days Qty: 14 0RF Primary Care [facility]: [facility] Gertrudis Carrera [facility] - Activity Restrictions/Additional Instructions: 10 keith placed. Normal wound care. Elkins removed in 10 to 14 days. Tetanus is updated during this visit. Disposition Disposition: Home, Self Care
[2022-03-18] MEDS: Diphth,Pertuss(Acell),Tet Vac 0.5 ML Vial IM (17:13)
[2022-03-18] MEDS: Lidocaine 1% (20 ml mdv) 20 ML Vial INFILT (17:14)
[2022-03-18 18:34] VITALS: BP 128/75; PULSE 81; RESP 16; O2SAT 98
== END 2022-03-18 18:35 | disposition home or self-care (01) ==
PROVIDERS: Emergency Provider Emergency Medicine; Visit Provider Emergency Medicine
DX: S71.111A Laceration without foreign body, right thigh, initial encounter (principal); F17.210 Nicotine dependence, cigarettes, uncomplicated; Z23 Encounter for immunization
CPT/HCPCS: 12002; 90471; 90715; 99283

== ENCOUNTER 2022-09-28 10:28 | Emergency (ER) | payer MEDICAID, SELFPAY ==
[2022-09-28 10:29] VITALS: BP 128/93; PULSE 110; RESP 18; TEMP 36.6; O2SAT 100
--- NOTE | 2022-09-28 10:44 | EX.ED.GENINJ ---
HPI History of Present Illness Chief Complaint: Burn Detail of Chief Complaint: Partial-thickness burn right index, long, ring and little finger Informant: patient Onset/Context/Timing Onset: Days Mechanism/Context: other (And states his hand was near a space heater when he fell asleep. This occurred several days ago.) Location of pain/injuries: Right hand Location: Index, long, ring and little finger Current Severity: Mild Maximum Severity: Mild Worsened by: Nothing Relieved by: Nothing Associated Symptoms Associated Symptoms: Negative for Parasthesias, Weakness, Loss of function, Inability to ambulate, Loss of consciousness or Amnesia Narrative Narrative: Patient is 57-year-old [id number] male presents with burn to his right index, long, ring and little finger. This occurred several days ago. This is due to thermal heat. He has blisters over the dorsal side of his index, long, ring and little finger. Blister are intact. There is no discoloration. There is no evidence of hemorrhage. He denies paresthesia, anesthesia or motor aches. Tetanus Immunization: <5 years Prior similar symptoms: No Recent Illness/Hospitalization: No PFSH PFSH Medical History Smoker Home Medications cholecalciferol (vitamin D3) 25 mcg (1,000 unit) tablet 1,000 unit PO DAILY 03/22/20 [History Last Taken Unknown] gabapentin 300 mg capsule 300 mg PO TIDCM 03/22/20 [History Last Taken Unknown] prednisone 20 mg tablet 40 mg PO DAILY #10 tabs 03/22/20 [Rx Last Taken Unknown] amoxicillin 875 mg-potassium clavulanate 125 mg tablet (Augmentin) 1 tab PO BID #20 tabs 05/29/21 [Rx Last Taken Unknown] prednisone 20 mg tablet 40 mg PO DAILY 7 days #14 tabs 05/29/21 [Rx Last Taken Unknown] Allergy/AdvReac Type Severity Reaction Status Date / Time No Known Allergies Allergy Verified 09/28/22 10:30 Social History (Updated 09/28/22 @ 10:[address] Claudio Talamantes MD) household members: none Smoking Status: Current every day smoker tobacco type: cigarettes substance use type: does not use ROS ROS ED Constitutional Constitutional ED: Denies chills, fever(s), subjective or sweats Integumentary Reports other Details: Blisters per HPI. There is no evidence of infection. ; Denies Abrasions or rash Neurologic Neurologic: Denies paresthesias or weakness Hematologic/Lymphatic Hematologic/Lymphatic: Denies easy bleeding, easy bruising or lymphadenopathy EXAM Physical Exam Const Vital Signs: 09/28/22 10:29 Temperature 97.9 F Temperature Source Temporal Pulse Rate 110 H Respiratory Rate 18 Blood Pressure 128/93 H Blood Pressure Mean 104 Pulse Ox 100 Oxygen Delivery Method Room Air Positive well nourished and well developed General Appearance ED: well developed and NAD HEENT HEENT Narrative: Head is atraumatic no cephalic. Ears normal. Nares patent. Eyes PERRL and EOMs intact bilaterally Neck full ROM Neck Narrative: Trachea is midline. There is no JVD. Resp normal respiratory effort Cardio regular rhythm Rate: regular rate Extremity full ROM; Negative for normal to inspection Extremity Narrative: Median, radial and ulnar function intact. Patient has callus formation due to line of work. There is no erythema, warmth, induration, lymphangitis or epitrochlear lymphadenopathy. Patient has blisters noted on the dorsal surface of the his fingers right hand Neuro oriented x3, CN's II-XII intact bilaterally, moves all extremities, no focal motor deficits and no sensory deficits noted Sensorium / Orientation: alert Skin no rashes or lesions noted, skin turgor normal and no jaundice Skin Narrative: Blisters dorsal surface of right fingers without evidence of infection MDM MDM MDM Narrative Medical decision making narrative: Patient has superficial partial-thickness burn to the dorsal surface of his right index, long, ring and little finger. Blisters are intact. Wound care for thermal burn that is several days from injury. Discharge Plan Triage Chief Complaint: Burn ED Provider: Claudio Talamantes Dx/Rx/DC Orders Clinical Impression: Superficial burn of multiple fingers of right hand Instructions: ED First- and [facility] ... Prescriptions: No Action gabapentin 300 MG capsule 300 mg PO TIDCM cholecalciferol (vitamin D3) 1,000 UNIT tablet 1,000 unit PO DAILY prednisone 20 MG tablet 40 mg PO DAILY Qty: 10 0RF Rx Instructions: With food amoxicillin-pot clavulanate [Augmentin] 875-125 mg tablet 1 tab PO BID Qty: 20 0RF prednisone 20 mg tablet 40 mg PO DAILY 7 Days Qty: 14 0RF Primary Care Provider: [facility] Gertrudis Carrera Referrals: [facility] [facility] [Primary Care Provider] - As Needed Disposition Disposition: Home, Self Care
== END 2022-09-28 10:59 | disposition home or self-care (01) ==
LOC: ED 10:57
PROVIDERS: Emergency Provider Emergency Medicine; Visit Provider Emergency Medicine
DX: T23.231A Burn of second degree of multiple right fingers (nail), not including thumb, initial encounter (principal); F17.210 Nicotine dependence, cigarettes, uncomplicated; X16.XXXA Contact with hot heating appliances, radiators and pipes, initial encounter; Y93.89 Activity, other specified; Y92.9 Unspecified place or not applicable
CPT/HCPCS: 99282

== ENCOUNTER 2022-11-09 17:58 | Emergency (ER) | payer MEDICAID, SELFPAY ==
[2022-11-09 17:59] VITALS: BP 143/94; PULSE 102; RESP 18; TEMP 36.6; O2SAT 97; BMI 30.5
--- NOTE | 2022-11-09 18:56 | EX.ED.UPPERE ---
HPI History of Present Illness HPI Narrative: Left thumb pain and swelling. Possible foreign body. Wound distal left forearm question foreign body. 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 States the last 3 days he has had pain and swelling to his left thumb. He believes there may have been a foreign body but unsure. Also wound to his left distal forearm. He is right-hand dominant. No prior history. Prior similar symptoms: No Recent Illness/Hospitalization: No PFSH PFSH Medical History Smoker Home Medications cholecalciferol (vitamin D3) 25 mcg (1,000 unit) tablet 1,000 unit PO DAILY 03/22/20 [History Last Taken Unknown] gabapentin 300 mg capsule 300 mg PO TIDCM 03/22/20 [History Last Taken Unknown] prednisone 20 mg tablet 40 mg PO DAILY #10 tabs 03/22/20 [Rx Last Taken Unknown] amoxicillin 875 mg-potassium clavulanate 125 mg tablet (Augmentin) 1 tab PO BID #20 tabs 05/29/21 [Rx Last Taken Unknown] prednisone 20 mg tablet 40 mg PO DAILY 7 days #14 tabs 05/29/21 [Rx Last Taken Unknown] cephalexin 500 mg capsule 500 mg PO Q6 #40 CAPSULES 11/09/22 [Rx Last Taken Unknown] Allergy/AdvReac Type Severity Reaction Status Date / Time No Known Allergies Allergy Verified 11/09/22 17:59 Social History household members: none Smoking Status: Current every day smoker tobacco type: cigarettes substance use type: does not use ROS ROS ED ROS Narrative Denies recent illness. Review of Systems ROS Unobtainable: Denies due to encephalopathy Constitutional Constitutional ED: Denies chills or fever(s) Eyes Eyes: Denies blurry vision ENT ENT ED: Denies ear pain Cardiovascular Cardiovascular: Denies chest pain Respiratory/Chest Respiratory/Chest: Denies cough Gastrointestinal Gastrointestinal: Denies abdominal pain Genitourinary Genitourinary ED: Denies dysuria Musculoskeletal Musculoskeletal: Denies back pain Integumentary Denies abscess Neurologic Neurologic: Denies headache(s) Psychiatric Psychiatric: Denies anxiety Endocrine Endocrinology: Denies cold intolerance Hematologic/Lymphatic Hematologic/Lymphatic: Denies easy bleeding Allergic/Immunologic Allergic/Immunologic ED: Denies mouth swelling or tongue swelling EXAM Physical Exam Narrative Exam Narrative: Sodium acute distress. Vital signs stable afebrile. H EENT exam unremarkable. Neck nontender. Lungs clear. Heart regular rhythm. Abdomen soft nontender. Moving all 4 extremities. Neurovascular intact. Left thumb is swollen and tender. No eponychial paronychial swelling or pus. No cellulitis. Primarily swollen and tender on the palmar aspect of his distal phalanx of his thumb. On the pad. There is no lymphangitic streaking. Also in the left forearm on the palmar side there is a wound. Looks like it is early infected. No abscess. No fluctuance. No lymphangitic streaking. No axillary lymphadenopathy. Other extremities are unremarkable. Const Vital Signs: 11/09/22 17:59 Temperature 98 F Temperature Source Temporal Pulse Rate 102 H Respiratory Rate 18 Blood Pressure 143/94 H Blood Pressure Mean 110 Pulse Ox 97 Oxygen Delivery Method Room Air Positive well nourished and well developed; Negative for obese, cachectic, contractures or unkempt General Appearance ED: well developed and NAD; Negative for unkempt, cachectic, contractures, cyanotic or diaphoretic Nutritional Appearance: Negative for cachectic or obese HEENT Reports moist mucous membranes normocephalic and atraumatic; Negative for trauma or tenderness Eyes PERRL and EOMs intact bilaterally General Eye ED: Negative for other Neck full ROM and supple General: Negative for tenderness Lymph Lymphatic: Negative for other Chest Wall inspection of chest normal and palpation of chest normal Chest: Negative for other Resp normal respiratory effort and clear to auscultation bilaterally Effort and Inspection: Negative for pain with movement Auscultation: Negative for rales, rhonchi or wheezes Cardio regular rate, regular rhythm, S1 normal heart sound, S2 normal heart sound and no murmurs GI non-tender, non-distended and no masses Inspection: Negative for abdominal distention Auscultation: normoactive bowel sounds Palpation: soft; Negative for tender or guarding Back/Spine no CVA tenderness Extremity normal to inspection and full ROM Extremity Narrative: Except left thumb is swollen and tender primarily on the palmar base of the distal phalanx. Could be infected or an abscess. No eponychial or paronychial swelling or pus. Normal range of motion. No lymphangitic streaking. No bony deformity. Normal range of motion. Normal sensation. He also has a wound on his left forearm proximal to the wrist on the palmar side of the states early infected. No abscess or obvious foreign body to either. X-rays are being obtained. Neuro oriented x3, CN's II-XII intact bilaterally, moves all extremities, no focal motor deficits and no sensory deficits noted Sensorium / Orientation: alert, oriented to person, oriented to place and oriented to time; Negative for orientation impaired, lethargic or stuporous Motor Exam: strength 5/5 throughout Psych mental status grossly normal Appearance: Negative for unkempt Attitude: No agitated Mood & Affect: Negative for depressed, anxious or tearful Skin General Skin Exam: Negative for petechiae Lesions: no lesions Rashes: no rashes Trauma: no lacerations or abrasions MDM MDM MDM Narrative Medical decision making narrative: 57-year-old male suspect infected left thumb possibly forearm he went to get checked for foreign body so x-rays are being obtained. X-rays of the thumb and forearm showed no foreign body. Discussed with patient concern for an abscess of his left thumb pad. Digital block was obtained. I made about a 1 to 2 inch incision. And drained amira pus. Broke up any loculations with forceps. Irrigated the wound. Placed about 2 inches of iodinated packing gauze. Patient pulled that out in 5 days. Follow-up with orthopedics. Tylenol Motrin for pain. Return if worse. Keflex 4 times a day for 10 days. Procedures Other Procedures Procedure(s): Right thumb felon or abscess. Digital block. Incision and drainage. Made about a 1 to 2 inch incision on the palmar aspect of the distal thumb pad. Expressed 2 to 3 cc of pus. Irrigated the wound. Placed 2 inches of packing material. Patient treated with Keflex. Follow-up with orthopedics. Discharge Plan Triage Chief Complaint: Wound ED Provider: Piyush Mclean Dx/Rx/DC Orders Clinical Impression: Felon of finger, Encounter for incision and drainage procedure Instructions: Abscess Drainage Prescriptions: New cephalexin 500 mg capsule 500 mg PO Q6 Qty: 40 0RF No Action gabapentin 300 MG capsule 300 mg PO TIDCM cholecalciferol (vitamin D3) 1,000 UNIT tablet 1,000 unit PO DAILY prednisone 20 MG tablet 40 mg PO DAILY Qty: 10 0RF Rx Instructions: With food amoxicillin-pot clavulanate [Augmentin] 875-125 mg tablet 1 tab PO BID Qty: 20 0RF prednisone 20 mg tablet 40 mg PO DAILY 7 Days Qty: 14 0RF [facility]: Marcel Gerber MD [Med Staff - Active Staff] - [facility] - As Needed Activity Restrictions/Additional Instructions: Motrin and Tylenol for pain. You must take the antibiotic Keflex 1 pill 4 times a day for 10 days. Finish the prescription. Call and follow-up with the orthopedic doctor, Marcel Gerber, of [facility] to ensure this is improving. What you had is called a fell on or abscess to your thumb that we drained. Keep the packing material in for 5 days. Pull it out. If it falls out before that leave it out. Keep the hand dressed. Return if looking worse streaks up your arm, fever or feeling worse. Disposition Disposition: Home, Self Care
[2022-11-09] MEDS: Lidocaine 1% (20 ml mdv) 20 ML Vial 10 ML INFILT (19:04)
--- NOTE | 2022-11-09 19:05 | RAD_ITS ---
INDICATION: possible fb ?? wound EXAMINATION/TECHNIQUE: X-RAY - LEFT XR Forearm 2 Views COMPARISON: None. FINDINGS: SOFT TISSUES: Soft tissue ossifications distal to the radius and ulna. No radiopaque foreign body. BONES/JOINTS: No acute fracture or subluxation.. Normal alignment. Preservation of the joint space.. No sclerotic or destructive changes observed. RAD/Forearm 2 Views IMPRESSION: Soft tissue ossifications. No radiopaque foreign body.. Electronically Signed: Wally Cuevas DO at 20:49 EST Reading Location ID and State: [facility] / [place] Tel [phone], Service support ,
--- NOTE | 2022-11-09 19:05 | RAD_ITS ---
STUDY: X-RAY - LEFT HAND, ATTENTION THUMB FINGER REASON FOR EXAM: Male, 57 years old. swlling left thumb ?? FB TECHNIQUE: 3 view(s) of the finger were obtained. COMPARISON: None. FINDINGS: Normal metacarpal head. Normal metacarpophalangeal joint. Normal proximal phalanx. Normal middle phalanx. Normal distal phalanx. Normal proximal interphalangeal joint. Normal distal interphalangeal joint. There is prominent calcific tendinitis of the MCP and IP joints and prominent spurring of the dorsal surface of the distal proximal phalanx No radiopaque foreign bodies within the soft tissues of the thumb RAD/Finger(s) Min 2 Views IMPRESSION: Degenerative changes. No evidence for radiopaque foreign body in the soft tissues. Electronically Signed: Kiran Miller MD at 20:07 EST ,
[2022-11-09] MEDS: Cephalexin 250 MG Capsule 500 MG PO (20:05)
[2022-11-09 21:10] VITALS: RESP 18
== END 2022-11-09 21:11 | disposition home or self-care (01) ==
PROVIDERS: Emergency Provider Emergency Medicine; Visit Provider Emergency Medicine
DX: S51.802A Unspecified open wound of left forearm, initial encounter (principal); F17.210 Nicotine dependence, cigarettes, uncomplicated; L03.011 Cellulitis of right finger
CPT/HCPCS: 10061; 10060; 73090; 73140; 99284

== ENCOUNTER 2023-02-05 21:41 | Emergency (ER) | payer MEDICAID, SELFPAY ==
[2023-02-05 21:42] VITALS: BP 117/79; PULSE 89; RESP 18; TEMP 35.9; O2SAT 98
[2023-02-05 21:48] VITALS: BMI 40.3
--- NOTE | 2023-02-05 22:20 | EX.ED.DYSGE1 ---
HPI History of Present Illness Chief Complaint: Anxiety Informant: patient Narrative Narrative: Patient presents after an episode of feeling anxious and paranoid shortly after taking Bull drops that he got at the drugstore. Evidently these are a CBD based drop. He states that the dosage is listed as 1-2 but he took about 4. About a half an hour after that he started to have what he describes being similar to a trip back in the old days. He states he got anxious. He was scared when what would happen next and got very paranoid and even got a little sweaty. He denied any chest pain or trouble breathing. He has not had no nausea vomiting diarrhea. No actual fevers. He states he is feeling a lot better now. He is not completely calm down but he is significantly improved. Patient is also on fluoxetine, gabapentin and bupropion but he did not take more or different amounts of this. His med list lists prednisone but he states he is not actually taking that at this time. But he was able to get me dosages of his other meds so I think this is accurate history. PFSH PFSH Medical History Alcohol abuse Anxiety Smoker Home Medications cholecalciferol (vitamin D3) 25 mcg (1,000 unit) tablet 1,000 unit PO DAILY 03/22/20 [History Last Taken Unknown] gabapentin 300 mg capsule 300 mg PO TIDCM 03/22/20 [History Last Taken Unknown] bupropion HCl 300 mg 24 hr tablet, extended release 300 mg PO DAILY 02/05/23 [History Last Taken Unknown] fluoxetine 20 mg capsule 60 mg PO DAILY 02/05/23 [History Last Taken Unknown] prednisone 20 mg tablet 60 mg PO DAILY 02/05/23 [History Last Taken Unknown] Allergy/AdvReac Type Severity Reaction Status Date / Time No Known Allergies Allergy Verified 02/05/23 21:43 Social History household members: none Smoking Status: Current every day smoker tobacco type: cigarettes substance use type: does not use ROS ROS ED ROS Narrative A complete review of systems was performed and is negative except as documented in the history of present illness. Some specific details below. Constitutional: No recent fevers or chills. He has not felt ill. EYE: No discharge, visual complaints, or pain. He did not have hallucinations. ENT: No difficulty swallowing. No swelling. No pain. No reflux symptoms. CV: No chest pain, palpitations. Respiratory: He was not short of breath. He has not been coughing. GI: No abdominal pain. No nausea vomiting diarrhea. No blood in stool. : No frequency dysuria or hematuria. Musculoskeletal: No recent trauma. No pains. No swelling. Skin: No rash. He did states that he felt sweaty when he was very anxious and paranoid but that went away. Neuro: No weakness or numbness. Psych: He does have history of anxiety and is on meds for this. But he is not depressed or suicidal. Please see history of present illness also. Endocrine: No polyuria or polydipsia. EXAM Physical Exam Narrative Exam Narrative: CONSTITUTIONAL: Patient is nontoxic in appearance. The patient looks comfortable. Work of breathing looks normal. He states he is feeling much better now. He is actually pretty good informant for what happened. He can tell me meds and dosages. He can tell me his past history. HEENT: No notable trauma. Mucous membranes is still moist. No sinus tenderness. EYES: No conjunctival injection. No proptosis. Pupils are about 3-1/2 mm and reactive NECK:No JVD. No stridor. CARDIOVASCULAR: Regular rate not tachycardic. Regular rhythm. No notable murmur. No JVD. RESPIRATORY: No respiratory distress. Breathing is unlabored. No wheezes. No rhonchi. No rales. No pain with a deep breath. No chest wall tenderness. GASTROINTESTINAL: Not distended. Bowel sounds are normal. No tenderness. No guarding. No rebound. No palpable mass. No bruit is heard. GENITOURINARY: No tenderness over the bladder. No CVA tenderness. MUSCULOSKELETAL: Atraumatic. No peripheral edema. No cord. No tenderness along the deep venous system. No asymmetry. No distended veins. NEUROLOGICAL: Patient is alert and appropriate. He is oriented x3. No focal deficit noted. SKIN: No noted rashes. No diaphoresis. He does have multiple abrasions on hands and forearms from labor but these are not self injury and they are not infected PSYCHIATRIC: Patient is feeling slightly anxious still but states he feels much better. But there is no flight of ideas. There is no paranoia now. He is not suicidal. Const Vital Signs: 02/05/23 21:42 Temperature 96.6 F L Temperature Source Temporal Pulse Rate 89 Respiratory Rate 18 Blood Pressure 117/79 Blood Pressure Mean 91 Pulse Ox 98 Oxygen Delivery Method Room Air MDM MDM MDM Narrative Medical decision making narrative: I explained to the patient that there is no indication he has infection. Although he has multiple abrasions from hard work none of these look to be infected. There is no cough nausea vomiting diarrhea. He has not had fevers and he does not have one now. I think he had a reaction to an [id number] CBD concentrate. He took 2-3 times the normal dose. His symptoms started after that and they have progressively gone away now. I still think it is reasonable we get him 1 dose of Ativan. He has a friend that can take him home. Although prednisone could also contribute to something like this he states that he is not on that. He states that he already got rid of the compound that he bought. I encouraged him not to take this again. He states he had never taken it prior to this. I see no indication for x-ray as he is not coughing short of breath or hypoxic. He is not febrile. I do not see indications for blood work. There is no indication that this was a cardiac or respiratory event. His symptoms started with taking an excess dose of his symptoms progressively got better. I do not feel that blood work or urinalysis was would add to the evaluation of this patient. Discharge Plan Triage Chief Complaint: Anxiety Other Complaint: Substance Abuse ED Provider: Evens Altman Dx/Rx/DC Orders Clinical Impression: Adverse effect of cannabis, initial encounter, History of anxiety, Adverse drug interaction with [id number] medication Instructions: ED Drug Reaction, Other Prescriptions: No Action gabapentin 300 MG capsule 300 mg PO TIDCM cholecalciferol (vitamin D3) 1,000 UNIT tablet 1,000 unit PO DAILY prednisone 20 mg tablet 60 mg PO DAILY bupropion HCl 300 mg tablet extended release 24 hr 300 mg PO DAILY fluoxetine 20 mg capsule 60 mg PO DAILY Primary Care Provider: [facility] Gertrudis Carrera Referrals: [facility] Gertrudis Carrera [Primary Care Provider] - 3-5 Days Disposition Disposition: Home, Self Care
[2023-02-05] MEDS: LORazepam 1 MG Tablet PO (22:24)
== END 2023-02-05 22:34 | disposition home or self-care (01) ==
PROVIDERS: Emergency Provider Emergency Medicine; Visit Provider Emergency Medicine
DX: F41.9 Anxiety disorder, unspecified (principal); T40.715A Adverse effect of cannabis, initial encounter; F17.210 Nicotine dependence, cigarettes, uncomplicated; Z79.899 Other long term (current) drug therapy
CPT/HCPCS: 99284

== ENCOUNTER 2023-07-27 15:22 | Emergency (ER) | payer OTHER, MEDICAID, SELFPAY ==
[2023-07-27 15:23] VITALS: BP 130/95; PULSE 90; RESP 18; TEMP 36.6; O2SAT 99; BMI 28.8
[2023-07-27 15:28] VITALS: TEMP 36.6; O2SAT 99
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
--- NOTE | 2023-07-27 15:45 | RAD_ITS ---
INDICATION: rib pain EXAMINATION/TECHNIQUE: X-RAY - XR Chest 2 Views COMPARISON: FINDINGS: LINES/DEVICES: None. LUNGS: No consolidation, edema or effusion. Left lower lobe granuloma. No pneumothorax. MEDIASTINUM AND CARDIOVASCULAR STRUCTURES: Cardiac silhouette not enlarged. Central airways and mediastinal contour are unremarkable. BONES AND SOFT TISSUES: Left 11th rib fracture. RAD/Chest PA and Lateral IMPRESSION: Left lower lobe granuloma. Left 11th rib fracture. Electronically Signed: Wally Cuevas DO at 16:36 EST ,
[2023-07-27] MEDS: Ketorolac 15 MG/ML Vial IV (16:30)
[2023-07-27 17:07] VITALS: BP 134/82; PULSE 85; RESP 18; O2SAT 94
== END 2023-07-27 17:08 | disposition home or self-care (01) ==
PROVIDERS: Emergency Provider Emergency Medicine; Visit Provider Emergency Medicine
DX: S22.32XA Fracture of one rib, left side, initial encounter for closed fracture (principal); F17.210 Nicotine dependence, cigarettes, uncomplicated; W17.89XA Other fall from one level to another, initial encounter; Y92.89 Other specified places as the place of occurrence of the external cause; F41.9 Anxiety disorder, unspecified; Z79.899 Other long term (current) drug therapy
CPT/HCPCS: 71046; 74177; 96374; 99283; Q9967; A4216

== ENCOUNTER 2023-08-01 16:29 | Emergency (ER) | payer OTHER, MEDICAID, SELFPAY ==
[2023-08-01 16:31] VITALS: BP 168/100; PULSE 94; RESP 18; TEMP 36.5; O2SAT 95; BMI 28.5
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
[2023-08-01] MEDS: Cephalexin 250 MG Capsule 500 MG PO (16:50)
== END 2023-08-01 17:05 | disposition home or self-care (01) ==
LOC: ED 17:04
PROVIDERS: Emergency Provider Emergency Medicine; Visit Provider Emergency Medicine
DX: T54.91XA Toxic effect of unspecified corrosive substance, accidental (unintentional), initial encounter (principal); T21.45XA Corrosion of unspecified degree of buttock, initial encounter; L03.317 Cellulitis of buttock; F17.210 Nicotine dependence, cigarettes, uncomplicated; F41.9 Anxiety disorder, unspecified; Z79.899 Other long term (current) drug therapy
CPT/HCPCS: 99282